=== PATIENT | female | born 1950 | race Caucasian/White ===

== ENCOUNTER 2019-11-21 10:25 | Emergency (ER) | payer OTHER ==
[~2019-11-21] VITALS: Ht 162.6 cm; Wt 46.3 kg
[2019-11-21 11:03] VITALS: Ht 162.6 cm; Wt 46.3 kg
[2019-11-21 14:09] VITALS: BP 129/78
== END 2019-11-21 14:09 | disposition home or self-care (01) ==
LOC: ED 10:25
DX: S01.91XA Laceration without foreign body of unspecified part of head, initial encounter (principal); W20.8XXA Other cause of strike by thrown, projected or falling object, initial encounter; Y93.89 Activity, other specified; Y92.091 Bathroom in other non-institutional residence as the place of occurrence of the external cause; Y99.8 Other external cause status
CPT/HCPCS: 90715; J2001